=== PATIENT | female | born 1975 | race Caucasian/White ===

== ENCOUNTER → 2019-08-04 15:16 | Outpatient (BNVA) | payer OTHER, SELFPAY | PROVIDERS: Family Provider Family Medicine; PCP Family Medicine; Visit Provider Family Medicine | DX: E07.9 Disorder of thyroid, unspecified (principal); E78.00 Pure hypercholesterolemia, unspecified; I10 Essential (primary) hypertension; N39.3 Stress incontinence (female) (male); R35.0 Frequency of micturition | CPT/HCPCS: 80053; 80061; 84439; 84443; 85025 ==

== ENCOUNTER 2020-11-11 20:25 | Emergency (ER) | payer SELFPAY ==
[2020-11-11 20:30] VITALS: BP 162/100; PULSE 98; RESP 18; TEMP 36.2; O2SAT 100; BMI 39.6
--- NOTE | 2020-11-11 21:27 | ED_ITS ---
HPI - Anxiety General: Chief Complaint: Anxiety Stated Complaint: hives, swollen throat Time Seen by Provider: 11/11/20 21:25 History of Present Illness: HPI narrative: 45-year-old female comes in with hives. Patient reports hives starting last night. Patient came in today due to persistent hives and some irritation right side of her throat. Patient appears well. Patient appears no acute distress. Patient is alert and oriented. Patient reports previous hives about 15 years ago. Patient does report seasonal allergies. Review of Systems General: Reports: 10 or more systems reviewed and unremarkable except in HPI and below Skin/Breast: Reports: other (Hives) [facility] ED PFSH: Medical History Essential hypertension Hypothyroidism, adult Plantar fasciitis of right foot Tendinopathy of right rotator cuff Surgical History History of arthroscopy of right shoulder Family History Other Cancer Diabetes Heart disease Social History Second hand smoke exposure: No Alcohol intake: never Desire information about alcohol rehabilitation?: No Desire information about substance/drug rehabilitation?: No Physical Exam Const: COMMON NORMALS: no acute distress and patient oriented x3 GENERAL APPEARANCE: cooperative HENMT: COMMON NORMALS: normocephalic, TM's normal bilaterally and Normal external nose present HEAD & SCALP: normal to inspection and normocephalic NOSE: Normal external nose present TYMPANIC MEMBRANE: TM's normal bilaterally MOUTH: Normal oral and palatal mucosa present THROAT: posterior oropharynx abnormal erythema Eye: GENERAL EYE: appearance normal, both eyes and all related structures Neck/C-Spine: COMMON NORMALS: full ROM Lymph: LYMPHATIC: no lymphadenopathy noted Chest: COMMONS NORMALS: normal inspection of the chest Resp: COMMON NORMALS: normal respiratory effort EFFORT & INSPECTION: Yes able to speak in complete sentences Cardio: COMMON NORMALS: regular rate and regular rhythm RATE: regular rate RHYTHM: regular rhythm GI: COMMON NORMALS: non-tender : COMMON NORMALS: Yes no CVA tenderness BLADDER/KIDNEY EXAM: Yes no CVA tenderness Back/Pelvis: COMMON NORMALS: no CVA tenderness and thoracic and lumbar spine normal to inspection Extremity: COMMON NORMALS: normal to inspection Neuro: COMMON NORMALS: patient oriented x3 and moves all extremities Psych: COMMON NORMALS: mental status grossly normal and cooperative Skin: COMMON NORMALS: no rashes or lesions noted GENERAL SKIN EXAM: no rashes or lesions noted Course 2 Vital Signs: Vital signs: Vital Signs Temperature 97.1 F L 11/11/20 20:30 Pulse Rate 89 11/11/20 21:54 Respiratory Rate 18 11/11/20 21:54 Blood Pressure 158/94 11/11/20 21:54 Pulse Oximetry 99 11/11/20 21:54 MDM - Anxiety MDM Narrative: Medical decision making narrative: 45-year-old female comes in with hives. On exam patient has hives to the fossa bilateral upper extremities, with other hives to the body at the torso. Respirations are even lungs are clear to auscultation. Skin is warm and dry. Vital signs are normal. Differential diagnosis includes allergic reaction, idiopathic urticaria, anaphylaxis. No signs of anaphylaxis was noted. Lungs were clear and airway remained remained intact. Patient was given a dose of steroids IM and will be continued on oral steroids. Patient will also be started on hydroxyzine 25 mg every 4 hours as needed itching and hives. Patient reports understanding of care plan and need for follow-up or return. Discharge Plan Discharge Patient Disposition: Home Clinical Impression: Urticaria Condition: Stable Prescriptions: New hydroxyzine HCl 25 mg tablet 25 mg PO Q4H PRN (Reason: itching, hives) Qty: 30 RF: 0 dexamethasone 4 mg tablet 4 mg PO BID Qty: 10 RF: 0 No Action Adult One Daily Multivitamin 0.4 mg tablet PO RF: 0 Osteo Bi-Flex Triple Strength 750 mg-644 mg- 30 mg-1 mg tablet 1 tab PO ONCE RF: 0 cholecalciferol (vitamin D3) 1,000 unit capsule 1,000 unit PO ONCE RF: 0 erythromycin 5 mg/gram (0.5 %) ointment 0.5 inch ophthalmic (eye) QID 7 Days Qty: 3.5 RF: 0 diclofenac sodium 75 mg tablet,delayed release (DR/EC) 75 mg PO BID 15 Days Qty: 30 RF: 5 hydrocodone-acetaminophen 7.5-325 mg tablet 1 tab PO Q6H PRN (Reason: pain) 7 Days Qty: 28 RF: 0 naproxen 500 mg tablet 500 mg PO BID Qty: 60 RF: 0 tramadol 50 mg tablet 50 mg PO Q6H PRN (Reason: pain) Qty: 30 RF: 0 oxybutynin chloride 5 mg tablet 5 mg PO BID Qty: 60 RF: 5 levocetirizine [Xyzal] 5 mg tablet 5 mg PO ONCE Qty: 90 RF: 1 lisinopril 20 mg tablet 20 mg PO ONCE Qty: 90 RF: 1 levothyroxine 137 mcg capsule 137 mcg PO ONCE 90 Days Qty: 90 RF: 1 Discharge Orders: Discharge ED (Routine); Ordered 11/11/20 Ordered By: Jethro Tony Referrals: Jeannette Winters MD [Primary Care Provider] - Discharge Diet: Usual diet Discharge Activity: Increase activity as tolerated Patient Instructions: Urticaria (ED), Opioid Safety Activity Restrictions/Additional Instructions: Home and rest. Drink plenty of fluids. Use medications as directed. Follow-up with primary care for further concerns. Return to the emergency department for worsening symptoms. Coding Level of Care Code ED Radiation Monitor for Jazmin Schuster
[2020-11-11 21:36] VITALS: PULSE 90; RESP 18; O2SAT 98
[2020-11-11] MEDS: dexamethasone 10 mg/mL INJ IM (21:43)
[2020-11-11] MEDS: hyDROXYzine 25 mg Capsule PO (21:43)
[2020-11-11 21:54] VITALS: BP 158/94; PULSE 89; RESP 18; O2SAT 99
== END 2020-11-11 21:57 | disposition home or self-care (01) ==
PROVIDERS: Emergency Provider Nurse Practitioner Family; PCP Family Medicine
DX: L50.9 Urticaria, unspecified (principal); I10 Essential (primary) hypertension
CPT/HCPCS: 96372; 99283; J1100

== ENCOUNTER 2021-01-11 07:48 | Outpatient (CLI) | payer OTHER, SELFPAY ==
--- NOTE | 2021-01-11 07:55 | MR_ITS ---
WS: [id number] MRI RIGHT SHOULDER HISTORY: STRAIN OF MUSCLE COMPARISON: 06/20/2018 TECHNIQUE: Multiplanar sequences of the shoulder joint are submitted. Micrometallic artifact within the soft tissues of the RIGHT shoulder from prior surgery. Mild AC join t osteoarthritis. Small amount of edema along the AC ligament. Minimal encroachment upon the supraspi natus tendon and muscle. No significant subacromial impingement. Overall the degenerative changes at the AC joint have improved. Small caliber biceps tendon. Biceps tendon is very poorly visualized. No os acromion. No muscle atrophy or edema. There is very minimal increased signal in thickening of the supraspinatus tendon. No rotator cuff tears are identified. No significant joint effusion. No labral abnormality. MR/MR shoulder RT wo con* [id number] IMPRESSION: 1. Mild AC joint osteoarthritis. Overall improved acute inflammatory changes s elida the prior study of 06/20/2018. 2. No rotator cuff tears. 3. Small caliber biceps tendon but it does appear to be within the bicipital g roove.
== END 2021-01-11 07:49 | disposition home or self-care (01) ==
PROVIDERS: PCP Family Medicine; Visit Provider Orthopaedic Surgery
DX: S46.211A Strain of muscle, fascia and tendon of other parts of biceps, right arm, initial encounter (principal); X58.XXXA Exposure to other specified factors, initial encounter; M19.011 Primary osteoarthritis, right shoulder
CPT/HCPCS: 73221

== ENCOUNTER → 2021-12-19 16:56 | Outpatient (BNVA) | payer BC, SELFPAY | PROVIDERS: PCP Family Medicine; Visit Provider Family Medicine | DX: M75.00 Adhesive capsulitis of unspecified shoulder (principal); E03.9 Hypothyroidism, unspecified; R10.9 Unspecified abdominal pain | CPT/HCPCS: 80048; 81000; 84439; 84443 ==

== ENCOUNTER → 2021-12-22 14:27 | Outpatient (BNVA) | payer BC, SELFPAY | PROVIDERS: PCP Family Medicine; Visit Provider Family Medicine | DX: I10 Essential (primary) hypertension (principal); E03.9 Hypothyroidism, unspecified | CPT/HCPCS: 80048; 84439; 84443 ==

== ENCOUNTER → 2022-01-24 09:43 | Outpatient (BNVA) | payer BC, SELFPAY | PROVIDERS: PCP Family Medicine; Visit Provider Orthopaedic Surgery | DX: M54.9 Dorsalgia, unspecified (principal) | CPT/HCPCS: 73030 ==

== ENCOUNTER 2022-02-08 13:06 | Emergency (ER) | payer BC, SELFPAY ==
[2022-02-08] VITALS (8 sets, daily range): BP systolic 116–142; BP diastolic 70–84; PULSE 59–87; RESP 14–23; TEMP 36.6; O2SAT 99–100; BMI 40.0
--- NOTE | 2022-02-08 13:14 | W.ED.CHESTPA ---
HPI - Chest Pain General: Chief Complaint: Chest Pain Stated Complaint: Chest pressure, right arm pain Time Seen by Provider: 02/08/22 13:14 History of Present Illness: Ms Hernandez is a 46-year-old lady with history of hypertension, thyroid disorder presenting to the emergency department due to chest discomfort. Onset of symptoms was approximately 3 hours ago and acute without known specific provoking factor. She reports generalized chest discomfort associated with radiation of the right arm. Started with exertion however is mildly improved with rest. Denies frequent episodes of similar. Does note higher heart rate than normal. Intensity symptoms is moderate. No other specific changes in health, exacerbating, or alleviating factors identified. Onset (ago): hour(s) Timing of current episode: constant Onset: during exertion Pain location: substernal Pain radiation: right shoulder Severity: moderate Associated symptoms: Reports dyspnea Review of Systems General: Reports: 10 or more systems reviewed and unremarkable except in HPI and below Resp: Reports: dyspnea PFSH ED PFSH: Medical History Essential hypertension Hypothyroidism, adult Plantar fasciitis of right foot Tendinopathy of right rotator cuff Surgical History History of arthroscopy of right shoulder Family History Other Cancer Diabetes Heart disease Social History Second hand smoke exposure: No Alcohol intake: never Desire information about alcohol rehabilitation?: No Desire information about substance/drug rehabilitation?: No Physical Exam Const: COMMON NORMALS: alert GENERAL APPEARANCE: cooperative and well developed HENMT: COMMON NORMALS: normocephalic, atraumatic and oropharynx normal HEAD & SCALP: normocephalic and atraumatic Eye: COMMON NORMALS: conjunctivae normal CONJUNCTIVA: Yes conjunctivae normal SCLERA: sclerae normal Neck/C-Spine: COMMON NORMALS: supple GENERAL: Yes trachea midline Resp: COMMON NORMALS: clear to auscultation bilaterally EFFORT & INSPECTION: Yes able to speak in complete sentences AUSCULTATION: clear to auscultation bilaterally Cardio: COMMON NORMALS: regular rate and regular rhythm RATE: regular rate RHYTHM: regular rhythm GI: COMMON NORMALS: Soft to palpation PALPATION: Yes Soft to palpation and No Tenderness to palpation present (GI) Extremity: GENERAL: Yes normal exam except as noted and No edema Neuro: COMMON NORMALS: moves all extremities SENSORIUM/ORIENTATION: Yes alert and No Orientation impaired Psych: COMMON NORMALS: mental status grossly normal and Normal thought process present THOUGHT PROCESS: Normal thought process present Course Vital Signs: Vital signs: Vital Signs Temperature 98 F 02/08/22 13:11 Pulse Rate 67 02/08/22 16:00 Respiratory Rate 14 02/08/22 16:00 Blood Pressure 116/81 02/08/22 16:00 Pulse Oximetry 100 02/08/22 16:00 Oxygen Delivery Me thod 02/08/22 14:00 MDM - Chest Pain Medical Decision Making 46-year-old lady with hypertension and obesity presenting to the emergency department due to chest discomfort. Patient is nontoxic on exam. EKG shows sinus rhythm with nonspecific ST segment abnormalities. No STEMI. Unremarkable hematologic and metabolic panel with exception of mildly elevated ALT of unclear significance. D-dimer negative. Initial and 2-hour troponin are negative. Viral studies rapid are negative. Chest x-ray with no lobar consolidation or pneumothorax. Patient is low risk by heart score, exact etiology of patient's symptoms is unclear however does not require inpatient testing at this time. The results of ED evaluation were discussed with the patient including prescriptions and/or symptomatic cares (if applicable) including appropriate and responsible use, followup plan, and return precautions. The patient verbalized understanding and felt safe for discharge. Medical Records I reviewed the patient's medical records. Lab Data I reviewed the patient's lab results. : 02/08/22 13:35 02/08/22 13:35 Radiology Impressions Chest X-Ray 02/08/22 13:30 IMPRESSION: No acute findings. Laboratory Results WBC 6.2 10^3/uL (4.0-10.0) 02/08/22 13:35 RBC 4.63 10^6/uL (4.1-5.3) 02/08/22 13:35 Hgb 13.7 g/dL (11.5-15.3) 02/08/22 13:35 Hct 41.5 % (37.0-47.0) 02/08/22 13:35 MCV 89.6 fl (81-99) 02/08/22 13:35 MCH 29.6 pg (28.0-34.0) 02/08/22 13:35 MCHC 33.0 g/dL (30.0-36.0) 02/08/22 13:35 RDW 11.9 % (12.1-15.1) L 02/08/22 13:35 Plt Count 221 10^3/cmm (130-400) 02/08/22 13:35 MPV 9.9 fL (7.4-10.4) 02/08/22 13:35 Neut % (Auto) 62.5 % 02/08/22 13:35 Lymph % (Auto) 27.6 % 02/08/22 13:35 [place] % (Auto) 7.8 % 02/08/22 13:35 Eos % (Auto) 1.8 % 02/08/22 13:35 Baso % (Auto) 0.0 % 02/08/22 13:35 Neut # (Auto) 3.86 10^3/uL (1.8-7.7) 02/08/22 13:35 Lymph # (Auto) 1.7 10^3/uL (0.8-4.8) 02/08/22 13:35 [place] # (Auto) 0.5 10^3/uL (0.2-0.9) 02/08/22 13:35 Eos # (Auto) 0.1 10^3/uL (0.0-0.8) 02/08/22 13:35 Baso # (Auto) 0.0 10^3/uL (0.0-0.1) 02/08/22 13:35 Nucleated RBC % (auto) 0 % 02/08/22 13:35 Nucleated RBCs # 0.0 /100WBC 02/08/22 13:35 D-Dimer 0.34 ug/mIFEU (0-0.59) 02/08/22 13:35 Sodium 136 mmol/L (136-145) 02/08/22 13:35 Potassium 4.1 mmol/L (3.5-5.1) 02/08/22 13:35 Chloride 102 mmol/L (98-107) 02/08/22 13:35 Carbon Dioxide 24 mmol/L (22-29) 02/08/22 13:35 Anion Gap 14.1 (5-19) 02/08/22 13:35 BUN 20 mg/dL (6-20) 02/08/22 13:35 Creatinine 0.7 mg/dL (0.5-0.9) 02/08/22 13:35 GFR Calculation 90.9 mL/min (90-130) 02/08/22 13:35 Glucose 93 mg/dL (65-115) 02/08/22 13:35 Calculated Osmolality 284 mOsm/kg (285-295) L 02/08/22 13:35 Calcium 9.2 mg/dL (8.5-10.5) 02/08/22 13:35 Total Bilirubin 0.3 mg/dL (0.15-1.2) 02/08/22 13:35 AST 25 U/L (0-32) 02/08/22 13:35 ALT 38 U/L (0-33) H 02/08/22 13:35 Alkaline Phosphatase 77 U/L (35-105) 02/08/22 13:35 Troponin T Baseline 6 ng/L (0-10) 02/08/22 13:35 Troponin T 120 Minute 6.00 ng/L (0-10) 02/08/22 15:17 Delta Troponin T 0 ABS# (0-10) 02/08/22 15:17 NT-Pro-B Natriuret Pep 43 pg/mL (0-125) 02/08/22 13:35 Total Protein 7.0 g/dL (6.6-8.7) 02/08/22 13:35 Albumin 4.3 g/dL (3.5-5.2) 02/08/22 13:35 Globulin 2.7 g/dL (1.3-4.6) 02/08/22 13:35 Lipase 31 U/L (13-60) 02/08/22 13:35 Influenza Type A Ag negative (Negative) 02/08/22 14:35 Influenza Type B Ag negative (Negative) 02/08/22 14:35 SARS-CoV-2 Ag (Rapid) negative (Negative) 02/08/22 14:35 Discharge Plan Discharge Patient Disposition: Home Clinical Impression: Chest pain Condition: Stable Prescriptions: No Action Osteo Bi-Flex Triple Strength 750 mg-644 mg- 30 mg-1 mg tablet 1 tab PO DAILY hydrocodone-acetaminophen 7.5-325 mg tablet 1 tab PO Q6H PRN (Reason: pain) 7 Days Qty: 28 0RF cyclobenzaprine 10 mg tablet 10 mg PO BID PRN (Reason: muscle spasm) Qty: 30 1RF meloxicam 15 mg tablet 15 mg PO DAILY 60 Days Qty: 60 2RF Women's Daily Formula 18 mg iron-400 mcg-500 mg Ca Tablet 1 tab PO DAILY Azo Cranberry 250 mg Tablet,Chewable 250 mg PO TID Euthyrox 137 mcg tablet 137 mcg PO DAILY lisinopril 20 mg tablet 20 mg PO DAILY Xyzal 5 mg tablet 5 mg PO DAILY Discharge Orders: Discharge ED (Routine); Ordered 02/08/22 Ordered By: Baron Starks Referrals: Jeannette Winters MD [Primary Care Provider] - Discharge Diet: Usual diet Discharge Activity: Resume usual activity Patient Instructions: Chest Pain (ED) Activity Restrictions/Additional Instructions: Thank you for visiting the emergency department. You were seen and evaluated for chest pain. The exact cause of your symptoms is unclear though does not appear to need inpatient management at this time given estimated risk stratification. Please follow-up with your primary care provider. They may desire to order additional cardiac testing. Return to the emergency department for uncontrolled symptoms or anything else that you are concerned about and feel needs emergency department evaluation. Coding Level of Care Code ED Produce Field Merchandiser for Jazmin Schuster Exam Comprehensive
--- NOTE | 2022-02-08 13:22 | ECG_ITS ---
[facility] Test Date: 2022-02-08 Pat Name: Ping Hernandez Department: Room: Gender: Female Heel Emery Buffer: : 1975 Requested By: Baron Starks Order Number: [id number] Capps MD: Tiffanie Sinclair M.D. Measurements Intervals [place] Rate: 80 P: 39 OR: 174 QRS: 19 QRSD: 101 T: 17 QT: 358 QTc: 415 Interpretive Statements SINUS RHYTHM No previous ECG available for comparison Electronically Signed On 02-08-2022 16:26:20 CDT by Tiffanie Sinclair M.D. [email or web address]
--- NOTE | 2022-02-08 13:30 | XRR_ITS ---
PROCEDURE INFORMATION: Exam: XR Chest Exam date and time: 02/08/2022 1:35 PM Age: 46 years old Clinical indication: Pain; Patient HX: Chest pressure, SOB, elevated heart rate; Additional info: Cp TECHNIQUE: Imaging protocol: Radiologic exam of the chest. Views: 1 view. COMPARISON: CR XR shoulder RT min 2V* [id number] 01/24/2022 9:45 AM FINDINGS: Lungs: Unremarkable. No consolidation. Pleural spaces: Unremarkable. No pleural effusion. No pneumothorax. Heart/Mediastinum: Unremarkable. No cardiomegaly. Bones/joints: Unremarkable. XR/XR chest 1V portable [id number] IMPRESSION: No acute findings.
[2022-02-08 13:47] LABS: Eosinophils # 0.1 10^3/uL (0.0-0.8); Eosinophils % 1.8 %; Hematocrit 41.5 % (37.0-47.0); Hemoglobin 13.7 g/dL (11.5-15.3); Lymphocytes # 1.7 10^3/uL (0.8-4.8); Lymphocytes % 27.6 %; Mean Corpuscular Hemoglobin 29.6 pg (28.0-34.0); Mean Corpuscular Volume 89.6 fl (81-99); Mean Platelet Volume 9.9 fL (7.4-10.4); Monocytes # 0.5 10^3/uL (0.2-0.9); Monocytes % 7.8 %; Neutrophils # 3.86 10^3/uL (1.8-7.7); Neutrophils % 62.5 %; Nucleated Red Blood Cells % 0 %; Platelet Count 221 10^3/cmm (130-400); Red Blood Count 4.63 10^6/uL (4.1-5.3); Red Cell Distribution Width 11.9 % (12.1-15.1); White Blood Count 6.2 10^3/uL (4.0-10.0)
[2022-02-08 14:02] LABS: D Dimer 0.34 ug/mIFEU (0-0.59)
[2022-02-08 14:09] LABS: Troponin(5th) Baseline 6 ng/L (0-10)
[2022-02-08 14:18] LABS: Alanine Aminotransferase 38 U/L (0-33); Albumin Level 4.3 g/dL (3.5-5.2); Alkaline Phosphatase 77 U/L (35-105); Anion Gap 14.1 (5-19); Aspartate Amino Transferase 25 U/L (0-32); Blood Urea Nitrogen 20 mg/dL (6-20); Calcium 9.2 mg/dL (8.5-10.5); Carbon Dioxide 24 mmol/L (22-29); Chloride 102 mmol/L (98-107); Globulin 2.7 g/dL (1.3-4.6); Glomerular Filtration Rate 90.9 mL/min (90-130); Glucose 93 mg/dL (65-115); Lipase 31 U/L (13-60); NT Pro B Type Natriuretic Pept 43 pg/mL (0-125); Osmolality Calculated 284 mOsm/kg (285-295); Potassium 4.1 mmol/L (3.5-5.1); Sodium 136 mmol/L (136-145); Total Bilirubin 0.3 mg/dL (0.15-1.2)
[2022-02-08] MEDS: ketorolac 30 mg/mL INJ 15 MG IVP (14:52)
[2022-02-08] MEDS: lidocaine 2% viscous 15 ML, aluminum-mag hydrox-simethicon 30 ML, sucralfate oral liq 1 GM PO (14:56)
[2022-02-08 15:01] LABS: Influenza A by IFA negative (Negative); Influenza B by IFA negative (Negative); SARS Covid-2 Antigen negative (Negative)
[2022-02-08 16:57] LABS: Troponin 5 2HR Delta 0 ABS# (0-10)
== END 2022-02-08 16:09 | disposition home or self-care (01) ==
PROVIDERS: Emergency Provider Emergency Medicine; PCP Family Medicine
DX: R07.9 Chest pain, unspecified (principal); Z20.822 Contact with and (suspected) exposure to COVID-19; I10 Essential (primary) hypertension
CPT/HCPCS: 71045; 80053; 83690; 83880; 84484; 85025; 85378; 87426; 87804; 93005; 96374; 99285; J1885

== ENCOUNTER → 2022-12-04 15:30 | Outpatient (BNVA) | payer BC, SELFPAY | PROVIDERS: PCP Family Medicine; Visit Provider Specialist | DX: M67.911 Unspecified disorder of synovium and tendon, right shoulder (principal); S46.211A Strain of muscle, fascia and tendon of other parts of biceps, right arm, initial encounter; X58.XXXA Exposure to other specified factors, initial encounter | CPT/HCPCS: 73030 ==

== ENCOUNTER 2023-01-04 12:38 | Outpatient (CLI) | payer BC, SELFPAY ==
--- NOTE | 2023-01-04 12:48 | MR_ITS ---
WS: [id number] MRI RIGHT SHOULDER ARTHROGRAM TECHNIQUE: Sagittal T2, coronal T1, T2 and proton density imaging. Axial gradient PDE imaging. Post a rthrogram imaging. CLINICAL INFORMATION: right shoulder pain COMPARISON: MRI 01/11/2021 FINDINGS: Moderate degenerative arthritis AC joint with mild edema. Mild edema at the AC joint with trace subac romial fluid. This appears progressed compared to previous. Subacromial space is preserved. Small par tial-thickness tear involving the distal supraspinatus anteriorly just distal to the acromion along t he bursal surface with fluid signal abnormality. No tendon retraction. This appears new compared to p revious. Tiny bursal surface tear at the distal supraspinatus insertion with a small amount of contra st. Normal infraspinatus. Normal teres minor. Subscapularis appears intact. Prior biceps tendon repair. B iceps tendon not well visualized in the bicipital groove unchanged from previous. Glenoid labrum appears grossly normal. Normal bone marrow signal in the humerus and glenoid. Thickeni ng and increased signal in the axillary recess joint capsule and synovium suspicious for adhesive cap sulitis in the appropriate clinical setting. Thickening with increased signal of the inferior glenohu meral ligament. Tiny amount of intra-articular contrast with difficulty injecting. Some contrast deco mpression into the subscapularis and axillary recess. IMPRESSION: 1. Suspected findings of adhesive capsulitis with small joint capsule . In addition, thickening of t he inferior glenohumeral ligament and axillary recess concordant with adhesive capsulitis. 2. Small partial-thickness bursal surface tears involving the distal supraspinatus and supraspinatus insertion new from previous 3. Tendinopathy supraspinatus. 4. Biceps tendon not well visualized within the bicipital groove likely due to prior biceps surgery with arthrodesis. 5. No acute appearing labral tears. 6. Moderate degenerative arthritis AC joint with mild edema progressed compared to previous
--- NOTE | 2023-01-04 13:00 | IR_ITS ---
WS: [id number] RIGHT SHOULDER ARTHROGRAM CLINICAL INFORMATION: shoulder pain COMPARISON: None. TECHNIQUE: The procedure including risks, benefits, and complications were discussed with the patient , who agreed to proceed. Timeout was performed. Using sterile technique, the patient was prepped and draped in the usual sterile fashion. Patient with difficulty laying supine and positioning arm due to prior surgery and arm pain. Difficulty positioning arm in external rotation due to pain. After 1% lidocaine injection using fluoroscopic guidance, a 22-gauge spinal needle was advanced into the RIGHT glenohumeral joint. Small amount of intra-articular contrast was injected. Difficulty injec ting additional contrast. Needle was withdrawn slightly and remaining contrast administered. Subseque ntly 12 cc of a mixture containing 15 cc normal saline, 5 cc Omnipaque 240, and 0.1 cc gadolinium wa s administered. No immediate complications. MRI to follow. FLUOROSCOPY TIME: 1min [id number] minutes. IMPRESSION: Fluoroscopic guided right shoulder arthrogram. MRI to follow.
== END 2023-01-04 12:39 | disposition home or self-care (01) ==
PROVIDERS: PCP Family Medicine; Visit Provider Specialist
DX: S46.211A Strain of muscle, fascia and tendon of other parts of biceps, right arm, initial encounter (principal); X58.XXXA Exposure to other specified factors, initial encounter; M25.511 Pain in right shoulder; M67.911 Unspecified disorder of synovium and tendon, right shoulder; M75.01 Adhesive capsulitis of right shoulder; M19.011 Primary osteoarthritis, right shoulder
CPT/HCPCS: 23350; 73223; 77002; A9577; Q9966

== ENCOUNTER 2023-04-17 08:53 | Outpatient (CLI) | payer BC, SELFPAY ==
--- NOTE | 2023-04-17 09:00 | XR_ITS ---
WS: [id number] XR cervical spine 3V* [id number] REASON FOR EXAM: M54.12 - Radiculopathy, cervical region FINDINGS: Normal lordosis of the cervical spine. No significant focal vertebral body abnormality. Mild narrowing of the C5-C6 disc space with small anterior osteophytes. No significant listhesis. Normal facet joints. IMPRESSION: Mild changes of degenerative spondylosis as above.
== END 2023-04-17 08:54 | disposition home or self-care (01) ==
LOC: RAD 08:55
PROVIDERS: PCP Family Medicine; Visit Provider Anesthesiology Pain Medicine
DX: M47.22 Other spondylosis with radiculopathy, cervical region (principal)
CPT/HCPCS: 72040

== ENCOUNTER 2023-05-08 06:58 | Outpatient (CLI) | payer BC, SELFPAY ==
--- NOTE | 2023-05-08 07:15 | MR_ITS ---
WS: [id number] MRI CERVICAL SPINE NONCONTRAST TECHNIQUE: Sagittal T1, T2 and STIR imaging. Axial T2, gradient, and fiesta imaging. CLINICAL INFORMATION: M54.12 - Radiculopathy, cervical region COMPARISON: None. FINDINGS: Straightening normal cervical lordosis. Mild cervical curve. Mild disc bulging worse at C5-C6. No hig h-grade central canal stenosis. Cord signal is normal. C2-C3: Normal. C3-C4: Normal. C4-C5: Mild facet arthropathy. Mild LEFT bony foraminal narrowing. Spinal canal and RIGHT foramen are patent. C5-C6: Disc osteophyte complex with endplate ridging. Small central protrusion with slight contact of the cervical cord. Spinal canal remains patent. Mild facet arthropathy. Moderate LEFT and mild RIGHT bony foraminal narrowing. Uncovertebral joint hypertrophy. C6-C7: Disc osteophyte complex with endplate ridging. Mild LEFT and no significant RIGHT foraminal na rrowing. Spinal canal is patent. Mild facet arthropathy. C7-T1: Mild LEFT and no significant RIGHT foraminal narrowing. Spinal canal is patent. Visualized brain stem structures: Normal. Prevertebral soft tissues: Normal. IMPRESSION: 1. Straightening of the normal cervical lordosis. Mild cervical curve. 2. Disc osteophyte complex C5-C6 with slight contact of the cervical cord. Spinal canal remains rosado nt. 3. Moderate LEFT C5-C6 bony foraminal narrowing. 4. Mild LEFT C4-C5, LEFT C6-7, and LEFT C7-T1 bony foraminal narrowing.
== END 2023-05-08 06:59 | disposition home or self-care (01) ==
LOC: RAD 06:59
PROVIDERS: PCP Family Medicine; Visit Provider Anesthesiology Pain Medicine
DX: M54.12 Radiculopathy, cervical region (principal); M25.78 Osteophyte, vertebrae; M48.03 Spinal stenosis, cervicothoracic region
CPT/HCPCS: 72141

== ENCOUNTER → 2023-07-25 15:37 | Outpatient (BNVA) | payer BC, SELFPAY | PROVIDERS: PCP Family Medicine; Visit Provider Registered Nurse Neonatal Intensive Care | DX: Z20.828 Contact with and (suspected) exposure to other viral communicable diseases (principal) | CPT/HCPCS: 87400 ==

== ENCOUNTER → 2023-08-07 09:00 | Outpatient (BNVA) | payer BC, SELFPAY | PROVIDERS: PCP Family Medicine; Visit Provider Family Medicine | DX: E03.9 Hypothyroidism, unspecified (principal); I10 Essential (primary) hypertension | CPT/HCPCS: 80053; 84443; 85025 ==

== ENCOUNTER → 2023-11-19 16:12 | Outpatient (BNVA) | payer BC, SELFPAY | PROVIDERS: PCP Family Medicine; Visit Provider Family Medicine | DX: E03.9 Hypothyroidism, unspecified (principal) | CPT/HCPCS: 84443 ==

== ENCOUNTER → 2023-12-06 11:48 | Outpatient (BNVA) | payer BC, SELFPAY | PROVIDERS: PCP Family Medicine; Visit Provider Registered Nurse Neonatal Intensive Care | DX: R39.9 Unspecified symptoms and signs involving the genitourinary system (principal) | CPT/HCPCS: 81000; 87086 ==

== ENCOUNTER → 2023-12-18 16:47 | Outpatient (BNVA) | payer BC, SELFPAY | PROVIDERS: PCP Family Medicine; Visit Provider Nurse Practitioner | DX: G56.03 Carpal tunnel syndrome, bilateral upper limbs (principal) | CPT/HCPCS: 36415; 80053; 81001; 85025; 87086 ==

== ENCOUNTER 2024-01-03 05:39 | Day surgery (SDC) | payer BC, SELFPAY ==
[2024-01-03] VITALS (12 sets, daily range): BP systolic 113–140; BP diastolic 67–106; PULSE 62–79; RESP 12–23; TEMP 36.1–36.7; O2SAT 96–100; BMI 40.8
[2024-01-03] MEDS: CELEcoxib 200 mg Capsule 400 MG PO (06:07)
[2024-01-03] MEDS: gabapentin 300 mg Capsule PO (06:07)
[2024-01-03] MEDS: acetaminophen 1,000 MG/100 ML PIGGYBACK 400 MG IV (06:07)
[2024-01-03] MEDS: sodium chloride 0.9% 1,000 ML 30 ML IV (06:08)
--- NOTE | 2024-01-03 06:41 | ANES.PREANE2 ---
Pre-Anesthetic Assessment Height/Weight: Height 1.55 m Weight 97.976 kg Temp Pulse Resp BP Pulse Ox O2 Del Method 97.1 F L 62 18 140/106 96 Room Air 01/03/24 05:58 01/03/24 05:58 01/03/24 05:58 01/03/24 05:58 01/03/24 05:58 01/03/24 05:59 Operation Date: 01/03/24 07:00 Proposed Procedures p Carpal Tunnel Release(Right) - Teressa Pack MD Familial anesthetic complications: None Was Beta Eveline taken within 24 hours: N/A Was Clonidine taken within 24 hours: N/A Last intake: Intake Last Liquid Date 01/02/24 Last Liquid Time 19:00 Last Solid Date 01/02/24 Last Solid Time 18:30 Social No alcohol and No tobacco Exam alert, oriented x 3, clear to auscultation bilaterally and regular rate & rhythm Airway Mallampati: Class II Dentition: other (back molars gone) CV/HEM Hypertension Metabolic Morbid Obesity and Thyroid Disease Anesthetic Plan ASA status: 2 Anesthesia: General Risk of > 500 ml blood loss (7ml/kg in children): No Medications/Allergies Home Medications Medication Instructions Recorded Confirmed Last Taken Type glucosamine 750 pz-empcdneqivy-xab 1 tab PO DAILY 04/03/19 01/02/24 01/02/24 History no1 644 mg-C 30 mg-lianne 1 mg tablet (Osteo Bi-Flex Triple Strength) levocetirizine 5 mg tablet (Xyzal) 5 mg PO DAILY 02/08/22 01/02/24 01/02/24 History multivit-iron 18 mg-folic acid 400 1 tab PO DAILY 02/08/22 01/02/24 01/02/24 History mcg-calcium 500 mg-minerals tablet (Women's Daily Formula) Cock up splint, LEFT #1 ea 05/14/23 12/18/23 Unknown Rx Cock up splint, RIGHT #1 ea 05/14/23 12/18/23 Unknown Rx celecoxib 200 mg capsule 200 mg PO BID 60 days #120 caps 08/27/23 01/02/24 01/02/24 Rx gabapentin 300 mg capsule 300 mg PO BID 30 days #60 caps 11/19/23 01/02/24 01/02/24 Rx lisinopril 20 mg tablet 20 mg PO DAILY #90 tabs 08/12/24 09/25/24 09/25/24 Rx levothyroxine 112 mcg tablet 112 mcg PO DAILY #90 tabs 11/20/23 01/02/24 01/02/24 Rx tizanidine 4 mg tablet 4 mg PO BID PRN muscle spasticity 11/27/23 01/02/24 01/02/24 Rx #60 tabs tramadol 50 mg tablet 50 mg PO Q8H PRN pain 30 days #90 11/27/23 01/02/24 01/02/24 Rx tabs cetirizine 10 mg tablet (Zyrtec) 10 mg PO DAILY 01/02/24 01/02/24 01/02/24 History tolterodine 2 mg tablet 2 mg PO BID 01/02/24 01/02/24 01/02/24 History Allergies Allergy/AdvReac Type Severity Reaction Status Date / Time Penicillins Allergy ALGY-Rash Verified 12/18/23 15:44 Current Medications Generic Name Dose Route Start Last Admin Trade Name Freq PRN Reason Stop Dose Admin Sodium Chloride 1,000 mls @ 30 mls/hr 01/03/24 06:00 01/03/24 06:08 Sodium Chloride 0.9% IV 01/04/24 05:59 30 mls/hr .Q24H JOYCELYN Administration PFSH Anesthesia Medical History Right carpal tunnel syndrome Mixed incontinence urge and stress Bilateral hand pain Positive Tinel's sign Plantar fasciitis of right foot Tendinopathy of right rotator cuff Essential hypertension Hypothyroidism, adult Surgical History History of arthroscopy of right shoulder Family History Other Cancer Diabetes Heart disease Social History Smoking and tobacco/nicotine status: never used tobacco/nicotine Second hand smoke exposure: No Alcohol intake: never Substance/Drug Use: never Data Anesthesia Cardiac Studies: No Data to Display
--- NOTE | 2024-01-03 06:59 | W.PM.OPSUD ---
Surgery/Procedure H&P Update DATE OF PROCEDURE: January 03, 2024 DATE H&P PERFORMED: 12/18/23 H&P UPDATE INFORMATION: I have reviewed H&P completed within last 30 days, I have examined patient prior to procedure, No changes to prior documentation and [place] is in [facility] [place] date indicated PLANNED PROCEDURE: Operation Date: 01/03/24 07:00 Proposed Procedures p Carpal Tunnel Release(Right) - Teressa Pack MD Related Problem List Diagnoses (1) Right carpal tunnel syndrome:
[2024-01-03] MEDS: ceFAZolin 2,000 mg SDV 2000 MG IVP (07:00)
[2024-01-03 07:04] LABS: OR HCG Qualitative Urine Negative (Negative)
[2024-01-03] MEDS: BUPivacaine 0.5% INJ 30 mL XX (07:30)
--- NOTE | 2024-01-03 07:47 | P.OP_ITS ---
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 The patient has been seen in the office complaining of right hand pain consistent with carpal tunnel. Nerve conduction studies demonstrated moderately severe entrapment of both median nerves at the wrist. Ulnar nerves were noted to be normal. After discussion in the office, the patient wished to proceed with carpal tunnel release. Risks and complications were discussed with her and consents were signed. Preoperatively, see she was seen in the holding area and procedure was again discussed with her. She was in agreement to proceed. Procedure: The patient was brought to the operating theater. The patient had a general anesthesia per LMA, ASA 2. The tourniquet was elevated to 250 mmHg for a total tourniquet time of 10 minutes. The patient was also given Ancef 2 g preoperatively. The arm was then prepped and draped with DuraPrep in usual fashion with the arm draped free. A surgical pause was performed. At the time, the surgical pause, we confirmed the site and side of surgery. We also confirmed the patient's identity, appropriate and timely administration of preoperative antibiotics and preoperative surgical markings. An incision was then made along the thenar crease. The incision crossed the wrist joint in a curvilinear fashion. Dissection continued through skin and soft tissues using a scalpel. The palmaris longus was identified along with the transverse carpal ligament. Each of these was released carefully to avoid injury to the median nerve. We were able to dissect gently into the carpal canal which was noted to be quite tight with significant compression across the median nerve. The nerve was visualized and was an hourglass shape. The canal was subsequently palpated to assure there was no bony encroachment upon the canal. There was a quite thickened fibrous tissue within the canal, and this was opened longitudinally as well. The canal was then palpated distally and proximally to assure that my small finger was passed easily without impingement. Finding this to be so, attention was directed to closure. The wound was irrigated with ropivacaine plain. It was then closed with 3-0 nylon in an interrupted mattress fashion. Sterile dressing was then placed consisting of Dermabond, OpSite, fluffed fluffs, sterile soft roll, and an Ron wrap. The tourniquet was released after 10 minutes. There were no complications. There were no specimens. The procedure was well tolerated. Plan is the patient will be discharged home. Related Problem List Diagnoses (1) Right carpal tunnel syndrome:
[2024-01-03] MEDS: HYDROcodone-acetaminophen 5-325 mg Tablet 1 TAB PO (08:59)
--- NOTE | 2024-01-03 09:15 | ANE.PACU2 ---
Inpatient post-anesthesia follow up: Airway intact: Yes Vital signs: Temperature 98.0 F Pulse Rate 62 Respiratory Rate 16 Blood Pressure 127/87 Pulse Oximetry 99 Oxygen Delivery Me thod Room Air Oxygen Flow Rate 5 Fraction of Inspir ed Oxygen Hydration adequate: Yes Nausea and vomiting: No Pain level: 1 Mental status: Baseline
== END 2024-01-03 09:15 | disposition home or self-care (01) ==
PROVIDERS: Anesthesiology; PCP Family Medicine; Visit Provider Specialist
PROC: (CPT 64721; principal; 2024-01-03 07:00)
DX: G56.01 Carpal tunnel syndrome, right upper limb (principal); E66.01 Morbid (severe) obesity due to excess calories; I10 Essential (primary) hypertension; E03.9 Hypothyroidism, unspecified; N39.46 Mixed incontinence; Z68.41 Body mass index [BMI] 40.0-44.9, adult; Z79.899 Other long term (current) drug therapy; Z79.890 Hormone replacement therapy; Z88.0 Allergy status to penicillin
CPT/HCPCS: 64721; 81025; J0131; J0690; J2704; J3010; J3490; J7030

== ENCOUNTER 2024-02-19 09:11 | Outpatient (CLI) | payer BC, SELFPAY ==
[2024-02-19 09:45] LABS: Eosinophils % 0.9 %; Hematocrit 39.4 % (36-47); Lymphocytes # 1.4 10^3/uL (0.8-4.8); Lymphocytes % 32.2 %; Mean Corpuscular Hemoglobin 30.5 pg (27-33); Mean Corpuscular Volume 89.7 fl (85-98); Mean Platelet Volume 9.7 fL (7.4-10.4); Monocytes # 0.4 10^3/uL (0.2-0.9); Monocytes % 8.8 %; Neutrophils # 2.55 10^3/uL (1.8-7.7); Neutrophils % 57.9 %; Nucleated Red Blood Cells % 0 %; Platelet Count 172 10^3/cmm (157-399); Red Blood Count 4.39 10^6/uL (3.85-5.65); Red Cell Distribution Width 11.6 % (12.1-15.1); White Blood Count 4.41 10^3/uL (3.29-11.43)
[2024-02-19 09:46] LABS: Bilirubin Urine Negative (Negative); Blood Urine Negative (Negative); Glucose Urine UA Negative (Normal); Ketones Urine Negative (Negative); Leukocyte Esterase Urine Trace (Negative); Nitrate Urine Negative (Negative); Protein Urine Negative (Negative); Urine Appearance Clear (CLEAR); Urine Color Yellow (Yellow); pH Urine 6.5 (5-7)
[2024-02-19 09:48] LABS: Add Urine Microscopic? YES; Bacteria Urine Trace /hpf; Hyaline Casts Urine 0-4 /lpf; RBC Urine 0-2 /hpf (0-2); Squamous Epithelial Cell Urine 0-5 /hpf (0-5); WBC Urine 0-5 /hpf (0-5)
[2024-02-19 09:59] LABS: Alanine Aminotransferase 22 U/L (0-33); Albumin Level 4.2 g/dL (3.5-5.2); Alkaline Phosphatase 77 U/L (35-105); Anion Gap 14.3 (5-19); Aspartate Amino Transferase 24 U/L (0-32); Blood Urea Nitrogen 15 mg/dL (6-20); Calcium 8.2 mg/dL (8.5-10.5); Carbon Dioxide 24 mmol/L (22-29); Chloride 103 mmol/L (98-107); Globulin 2.3 g/dL (1.3-4.6); Glomerular Filtration Rate 107.6 mL/min (90-130); Glucose 124 mg/dL (65-115); Osmolality Calculated 286 mOsm/kg (285-295); Potassium 4.3 mmol/L (3.5-5.1); Sodium 137 mmol/L (136-145); Total Bilirubin 0.2 mg/dL (0.15-1.2); Total Protein 6.5 g/dL (6.6-8.7)
== END 2024-02-19 09:12 | disposition home or self-care (01) ==
LOC: LAB 09:12
PROVIDERS: PCP Family Medicine; Visit Provider Nurse Practitioner
DX: G56.02 Carpal tunnel syndrome, left upper limb (principal)
CPT/HCPCS: 36415; 80053; 81001; 85025

== ENCOUNTER 2024-03-27 11:38 | Day surgery (SDC) | payer BC, SELFPAY ==
[2024-03-27] VITALS (10 sets, daily range): BP systolic 113–145; BP diastolic 76–103; PULSE 67–90; RESP 14–18; TEMP 36.1–36.6; O2SAT 94–100; BMI 41.5
[2024-03-27] MEDS: acetaminophen 1,000 MG/100 ML PIGGYBACK 400 MG IV (12:15)
[2024-03-27] MEDS: sodium chloride 0.9% 1,000 ML 30 ML IV (12:15)
[2024-03-27] MEDS: CELEcoxib 200 mg Capsule 400 MG PO (12:16)
[2024-03-27] MEDS: gabapentin 300 mg Capsule PO (12:16)
[2024-03-27 12:25] LABS: OR HCG Qualitative Urine Negative (Negative)
--- NOTE | 2024-03-27 12:36 | ANES.PREANE2 ---
Pre-Anesthetic Assessment Height/Weight: Height 1.55 m Weight 99.79 kg Temp Pulse Resp BP Pulse Ox O2 Del Method 98 F 90 18 144/103 99 Room Air 03/27/24 12:07 03/27/24 12:07 03/27/24 12:07 03/27/24 12:07 03/27/24 12:07 03/27/24 12:08 Operation Date: 03/27/24 13:35 Proposed Procedures p Carpal Tunnel Release / 14615, G56.02(Left) - Teressa Pack MD Familial anesthetic complications: None Was Beta Eveline taken within 24 hours: N/A Was Clonidine taken within 24 hours: N/A Last intake: Intake (jello cup at 0530) Last Liquid Date 03/26/24 Last Liquid Time 22:00 Last Solid Date 03/26/24 Last Solid Time 21:00 Social No alcohol and No tobacco Exam alert, oriented x 3, clear to auscultation bilaterally and regular rate & rhythm Airway Mallampati: Class II Dentition: other (missing) Metabolic Thyroid Disease Anesthetic Plan ASA status: 3 Anesthesia: General Risk of > 500 ml blood loss (7ml/kg in children): No Medications/Allergies Home Medications Medication Instructions Recorded Confirmed Last Taken Type glucosamine 750 [id number]-gyt 1 tab PO DAILY 04/03/19 03/26/24 03/26/24 History no1 644 mg-C 30 mg-lianne 1 mg tablet (Osteo Bi-Flex Triple Strength) levocetirizine 5 mg tablet (Xyzal) 5 mg PO DAILY 02/08/22 03/26/24 03/26/24 History multivit-iron 18 mg-folic acid 400 1 tab PO DAILY 02/08/22 03/26/24 03/26/24 History mcg-calcium 500 mg-minerals tablet (Women's Daily Formula) lisinopril 20 mg tablet 20 mg PO DAILY #90 tabs 11/19/23 03/26/24 03/26/24 Rx levothyroxine 112 mcg tablet 112 mcg PO DAILY #90 tabs 11/20/23 03/26/24 03/26/24 Rx tizanidine 4 mg tablet 4 mg PO BID PRN muscle spasticity 11/27/23 03/26/24 03/26/24 Rx #60 tabs tramadol 50 mg tablet 50 mg PO Q8H PRN pain 30 days #90 11/27/23 03/26/24 03/26/24 Rx tabs cetirizine 10 mg tablet (Zyrtec) 10 mg PO DAILY 01/02/24 03/26/24 03/26/24 History gabapentin 300 mg capsule 300 mg PO BID #60 caps 01/14/24 03/26/24 03/26/24 Rx celecoxib 200 mg capsule 200 mg PO BID 60 days #120 caps 02/25/24 03/26/24 03/26/24 Rx tolterodine 2 mg tablet 2 mg PO BID 03/26/24 03/26/24 03/26/24 History Allergies Allergy/AdvReac Type Severity Reaction Status Date / Time Penicillins Allergy ALGY-Rash Verified 03/27/24 12:02 Current Medications Generic Name Dose Route Start Last Admin Trade Name Freq PRN Reason Stop Dose Admin Sodium Chloride 1,000 mls @ 30 mls/hr 03/27/24 11:45 03/27/24 12:15 Sodium Chloride 0.9% IV 03/28/24 11:44 30 mls/hr .Q24H JOYCELYN Administration PFSH Anesthesia Medical History Right carpal tunnel syndrome Mixed incontinence urge and stress Bilateral hand pain Positive Tinel's sign Plantar fasciitis of right foot Tendinopathy of right rotator cuff Essential hypertension Hypothyroidism, adult Surgical History S/P carpal tunnel release Date of procedure: January 03, 2024 Procedure done: Right carpal tunnel release Surgeon: Teressa Pack MD History of arthroscopy of right shoulder Family History Other Cancer Diabetes Heart disease Social History Smoking and tobacco/nicotine status: former use of tobacco/nicotine Second hand smoke exposure: No Alcohol intake: never Substance/Drug Use: never Data Anesthesia Cardiac Studies: No Data to Display
[2024-03-27] MEDS: ceFAZolin 2,000 mg SDV 2000 MG IVP (13:50)
--- NOTE | 2024-03-27 13:50 | W.PM.OPSUD ---
Surgery/Procedure H&P Update DATE OF PROCEDURE: March 27, 2024 DATE H&P PERFORMED: 02/13/24 H&P UPDATE INFORMATION: I have reviewed H&P completed within last 30 days, I have examined patient prior to procedure, No changes to prior documentation and H&P is in [facility] [place] EMR on date indicated PLANNED PROCEDURE: Operation Date: 03/27/24 13:35 Proposed Procedures p Carpal Tunnel Release / 36862, G56.02(Left) - Teressa Pack MD Related Problem List Diagnoses (1) Left carpal tunnel syndrome:
[2024-03-27] MEDS: BUPivacaine 0.5% INJ 30 mL XX (14:16)
--- NOTE | 2024-03-27 15:07 | PM.OP ---
Operative Report Date of procedure: March 27, 2024 Pre-op diagnosis: Left carpal tunnel syndrome Post-op diagnosis: Left carpal tunnel syndrome Post-op findings: Very tight carpal canal with purplish discoloration of the median nerve and hourglass shape Procedure done: Left carpal tunnel release Implants: None Specimens removed/disposition: None Pathology: None Surgeon: Teressa Pack MD Director Of Rehabilitation: None Anesthesia: General (Per LMA, ASA 3) Estimated blood loss (mL): 2 Tourniquet time (min): 10 (At 250 mmHg) IV fluids (mL): 600 Urine output (mL): 0 (No Titus) Complications: None Findings: Significant compression across the carpal canal Condition: stable Disposition: PACU (Then return to same-day surgery for discharge to home) Brief History: This 48-year-old woman previously presented for left carpal tunnel release. She presents today for right carpal tunnel relief. She had nerve conduction studies demonstrating moderately severe entrapment of both median nerves at the wrist, and she has done well following her left carpal tunnel release. Ulnar nerves were noted to be normal per nerve conduction study. The patient was seen and evaluated in the office, consents were signed and questions were answered with regards to the right carpal tunnel release. Procedure: The patient was brought to the operating theater. The patient had a general anesthesia per LMA, ASA 3. The tourniquet was elevated to 250 mmHg for a total tourniquet time of 10 minutes. The patient was also given Ancef 2 g preoperatively. The arm was then prepped and draped with DuraPrep in usual fashion with the arm draped free. A surgical pause was performed. At the time, the surgical pause, we confirmed the site and side of surgery. We also confirmed the patient's identity, appropriate and timely administration of preoperative antibiotics and preoperative surgical markings. An incision was then made along the thenar crease. The incision crossed the wrist joint in a curvilinear fashion. Dissection continued through skin and soft tissues using a scalpel. The palmaris longus was identified along with the transverse carpal ligament. Each of these was released carefully to avoid injury to the median nerve. We were able to dissect gently into the carpal canal which was noted to be quite tight with significant compression across the median nerve. The nerve was visualized and was an hourglass shape. The canal was subsequently palpated to assure there was no bony encroachment upon the canal. There was a quite thickened fibrous tissue within the canal, and this was opened longitudinally as well. The canal was then palpated distally and proximally to assure that my small finger was passed easily without impingement. Finding this to be so, attention was directed to closure. The wound was irrigated with ropivacaine plain. It was then closed with 3-0 nylon in an interrupted mattress fashion. Sterile dressing was then placed consisting of Dermabond, OpSite, fluffed fluffs, sterile soft roll, and an Ron wrap. The tourniquet was released after 10 minutes. There were no complications. There were no specimens. The procedure was well tolerated. Plan is the patient will be discharged home. Related Problem List Diagnoses (1) Left carpal tunnel syndrome:
== END 2024-03-27 16:01 | disposition home or self-care (01) ==
PROVIDERS: PCP Family Medicine; Visit Provider Specialist
PROC: (CPT 64721; principal; 2024-03-27 13:35)
DX: G56.02 Carpal tunnel syndrome, left upper limb (principal); E03.9 Hypothyroidism, unspecified; I10 Essential (primary) hypertension; Z87.891 Personal history of nicotine dependence
CPT/HCPCS: 64721; 81025; J0131; J0690; J1100; J2250; J2405; J2704; J3010; J3490; J7030

== ENCOUNTER → 2024-12-02 09:24 | Outpatient (BNVA) | payer BC, SELFPAY | PROVIDERS: PCP Family Medicine; Visit Provider Family Medicine | DX: Z98.890 Other specified postprocedural states (principal) | CPT/HCPCS: 80053; 84443; 85025 ==

== ENCOUNTER 2024-12-15 07:35 | Emergency (ER) | payer BC, SELFPAY ==
--- OUTSIDE RECORDS SUMMARY | 2024-12-15 07:45 | XMS_ITS | Clinical Summary ---
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 Gender Identity Not on file Sexual Orientation Not on file Plan of Treatment Health Maintenance Due Date Last Done Comments DTAP/TDAP/TD VACCINES (1 - Tdap) 1996 HEPATITIS B VACCINES (1 of 3 - 19+ 3-dose series) 07/08 HPV/Cotest (21-29) 1998 CERVICAL CANCER SCREENING 07/23/2007 HPV/Cotest (30-65) 07/23/2007 PAP SMEAR 07/23/2007 BREAST CANCER SCREENING 2017 COLORECTAL SCREENING 2022 Colorectal Cancer Screening 2022 FIT-DNA Q 3 years 2022 FIT/FOBT Q 1 year 2022 Flex Sig/CT Colonography Q 5 years 2022 INFLUENZA VACCINE (#1) 2024 [place] [id number] Care Teams Reel Winder Relationship Specialty Start Date End Date Jeannette Winters MD [address] [place] [id number] PCP - General Family Practice 02/21/21
--- NOTE | 2024-12-15 07:47 | XR_ITS ---
WS: [id number] Right foot, 3 views, 12/15/2024 Clinical Data: Pain Comparison: None. Findings: No fractures or dislocations are seen. No bone destruction or erosion is noted. The joint spaces and soft tissues are normal. XR/XR foot RT min 3V* [id number] Impression: Negative right foot.
[2024-12-15 08:00] VITALS: BP 123/91; PULSE 106; RESP 18; TEMP 36.7; O2SAT 95; BMI 41.9
--- NOTE | 2024-12-15 08:06 | W.ED.EXTPRO ---
HPI - Extremity Problem General: Chief complaint: Extremity Injury, Lower Stated complaint: right foot pain Time Seen by Provider: 12/15/24 07:36 History of Present Illness: 49-year-old female presents emergency room with complaint of right foot pain. She is recent been seeing her primary care doctor for plantar fasciitis she had her foot taped has a compression sock on this morning she was getting ready for work while she was walking and accidentally kicked a box with her right foot. She had a shoe on at the time. She is complaining of pain to the right forefoot she does not really isolate the pain to particular portion of the foot beyond that. No other injuries. Related Data Home Medications ?Medication ?Instructions ?Recorded ?Confirmed glucosamine 750 xh-rxvtsdyyihy-emt 1 tab PO DAILY 04/03/19 04/07/24 no1 644 mg-C 30 mg-lianne 1 mg tablet (Osteo Bi-Flex Triple Strength) levocetirizine 5 mg tablet (Xyzal) 5 mg PO DAILY 02/08/22 04/07/24 multivit-iron 18 mg-folic acid 400 1 tab PO DAILY 02/08/22 04/07/24 mcg-calcium 500 mg-minerals tablet (Women's Daily Formula) cetirizine 10 mg tablet (Zyrtec) 10 mg PO DAILY 01/02/24 12/02/24 Previous Rx's ?Medication ?Instructions ?Recorded levothyroxine 112 mcg tablet 112 mcg PO DAILY #90 tabs 11/20/23 celecoxib 200 mg capsule 200 mg PO BID 60 days #120 caps 09/02/24 tolterodine 2 mg tablet See Rx Instructions .Route 10/08/24 .COMPLEX #60 tabs lisinopril 20 mg tablet See Rx Instructions .Route 10/29/24 .COMPLEX #90 tabs tizanidine 4 mg tablet 4 mg PO BID PRN muscle spasticity 11/20/24 #60 tabs tramadol 50 mg tablet 50 mg PO Q8H PRN pain 30 days #90 11/20/24 tabs prednisone 20 mg tablet 20 mg PO .COMPLEX #30 tabs 12/02/24 Allergies Allergy/AdvReac Type Severity Reaction Status Date / Time Penicillins Allergy ALGY-Rash Verified 12/02/24 08:20 Review of Systems Musc: Reports: extremity pain PFSH ED PFSH: Medical History Right carpal tunnel syndrome Mixed incontinence urge and stress Bilateral hand pain Positive Tinel's sign Plantar fasciitis of right foot Tendinopathy of right rotator cuff Essential hypertension Hypothyroidism, adult Surgical History S/P carpal tunnel release Date of procedure: January 03, 2024 Procedure done: Right carpal tunnel release Surgeon: Teressa Pack MD History of arthroscopy of right shoulder Family History Other Cancer Diabetes Heart disease Social History Smoking and tobacco/nicotine status: never used tobacco/nicotine Second hand smoke exposure: No Alcohol intake: never Substance/Drug Use: never Physical Exam Extremity: OTHER: Examination of the right foot no obvious deformities. Dorsalis pedis posterior tibialis pulses are normal sensation normal no lacerations or abrasions. No skin sores or pressure ulcers noted. No redness erythema Course Vital Signs: Vital signs: Vital Signs Temperature 98.1 F 12/15/24 08:00 Pulse Rate 106 H 12/15/24 08:00 Respiratory Rate 18 12/15/24 08:00 Blood Pressure 116/74 12/15/24 08:40 Pulse Oximetry 95 12/15/24 08:00 Oxygen Delivery Me thod Room Air 12/15/24 08:00 MDM - Extremity (Nontraumatic) Medical Decision Making Right foot x-ray negative for acute fractures. Discussed with patient. Elevate ice can use anti-inflammatories previously prescribed follow-up with PCP as needed Lab Data Radiology Impressions Foot X-Ray 12/15/24 07:47 Impression: Negative right foot. All radiology interpretation(s) finalized by discharge Discharge Plan Discharge Patient Disposition: Home Clinical Impression: Plantar fasciitis of right foot Acute foot pain Qualifiers: Laterality: right Qualified Code(s): M79.671 - Pain in right foot Condition: Stable Prescriptions: No Action Osteo Bi-Flex Triple Strength 750 mg-644 mg- 30 mg-1 mg tablet 1 tab PO DAILY prednisone 20 mg tablet 20 mg PO .COMPLEX Qty: 30 0RF Rx Instructions: 3 tabs daily x 3d, then 2 1/2 x 3, 2 x 3, 1 1/2 x2, 1 x2d, 1/2 daily til gone levothyroxine 112 mcg tablet 112 mcg PO DAILY Qty: 90 3RF celecoxib 200 mg capsule 200 mg PO BID 60 Days Qty: 120 2RF tolterodine 2 mg tablet See Rx Instructions .ROUTE .COMPLEX Qty: 60 4RF Dose Instruction: Take 1 tablet by mouth twice daily Rx Instructions: Take 1 tablet by mouth twice daily lisinopril 20 mg tablet See Rx Instructions .ROUTE .COMPLEX Qty: 90 0RF Dose Instruction: Take 1 tablet by mouth once daily Rx Instructions: Take 1 tablet by mouth once daily tramadol 50 mg tablet 50 mg PO Q8H PRN (Reason: pain) 30 Days Qty: 90 5RF tizanidine 4 mg tablet 4 mg PO BID PRN (Reason: muscle spasticity) Qty: 60 8RF Women's Daily Formula 18 mg iron-400 mcg-500 mg Ca Tablet 1 tab PO DAILY levocetirizine [Xyzal] 5 mg tablet 5 mg PO DAILY cetirizine [Zyrtec] 10 mg Tablet 10 mg PO DAILY Discharge Orders: Discharge ED (Routine); Ordered 12/15/24 Ordered By: Rahul Ellis Referrals: Jeannette Winters MD [Primary Care Provider, Family Practice] Discharge Diet: Usual diet Discharge Activity: Increase activity as tolerated Patient Instructions: Opioid Safety, Pain Management, Patient Portal & [place] Instructions Activity Restrictions/Additional Instructions: Thank you for choosing [facility] for your healthcare needs today. It is very important that you follow up as instructed or that you return to the Emergency Department should you have concerns or if your condition changes or worsens in any way. Emergency department visits are focused on emergent conditions, in some cases you may require further evaluation on an outpatient basis. You were seen in the emergency room after accidentally kicking a object at home. Your x-ray did not show any acute fractures. Pain is due to a strain to the foot from the injury. You can elevate apply ice continue to use your anti-inflammatories follow-up with your primary care doctor (Please note that included in your discharge packet is information concerning opioid safety and pain management. This information is given to all patients were discharged from the ER regardless of their discharge diagnosis or the medicines they usually take or are prescribed.) Print Language: Yi Coding Level of Care Code ED Policy Change Clerks Supervisor for Franciscog Mariely
[2024-12-15 08:40] VITALS: BP 116/74
== END 2024-12-15 08:57 | disposition home or self-care (01) ==
PROVIDERS: Emergency Provider Family Medicine; PCP Family Medicine
DX: M72.2 Plantar fascial fibromatosis (principal); M79.671 Pain in right foot; I10 Essential (primary) hypertension
CPT/HCPCS: 73630; 99283